=== PATIENT | male | born 1990 | race African-American/Black ===

== ENCOUNTER 2021-08-11 14:33 | Emergency (ER) | payer MEDICAID ==
[~2021-08-11] VITALS: Ht 172.7 cm; Wt 66.0 kg
[2021-08-11 15:30] VITALS: BP 118/61
[2021-08-11] MEDS ORDERED: KETOROLAC TROMETHAMINE 30 MG/ML VIAL IM ONE (15:30)
[2021-08-11] MEDS ORDERED: ACETAMINOPHEN 500 MG TABLET PO ONE (15:30)
== END 2021-08-11 17:13 | disposition home or self-care (01) ==
LOC: EMS 14:33
DX: M26.622 Arthralgia of left temporomandibular joint (principal)
CPT/HCPCS: 96372; 99283; J1885